=== PATIENT | female | born 1975 ===

== ENCOUNTER 2020-05-06 04:50 | Day surgery (SDC) | payer OTHER ==
[2020-05-03 09:03] VITALS: BMI 33.3
[~2020-05-06 04:50] MED LIST: FERRIC SUBSULFATE 500 ML BOTTLE TP ONE
[2020-05-06] MEDS ORDERED: MIDAZOLAM HCL 2 MG/2 ML SINGLE DOSE VIAL ONE (07:31)
[2020-05-06] MEDS ORDERED: LIDOCAINE 1%/EPI 1:100000 (50 ML MULTI DOSE VIAL) ONE (08:10)
--- NOTE | 2020-05-06 08:12 | HP ---
History & Physical Update - History History: No Change (Cervical ALEX 1-2, positive HR-HPV) - Physical Physical: No Change - Assessment Assessment: No Change - Plan Plan: No Change (Colposcopy, LEEP)
[2020-05-06] MEDS ORDERED: IODINE/POTASSIUM IODIDE 5%/10% 14 ML BOTTLE NR ONE (08:37)
[2020-05-06] MEDS ORDERED: LIDOCAINE 1%/EPI 1:100000 (50 ML MULTI DOSE VIAL) NR ONE (08:38)
[2020-05-06] MEDS ORDERED: FERRIC SUBSULFATE 500 ML BOTTLE TP ONE (08:55)
--- NOTE | 2020-05-06 09:09 | OP ---
Operative Note - Note: Operative Date: 05/06/20 Pre-Operative Diagnosis: HGSIL of cervix, positive hr-HPV Operation: Colposcopy, LEEP Findings: No masses or sign of dysplasia. Post-Operative Diagnosis: Same as Pre-op Surgeon: Sharif Banegas Anesthesiologist/SIXTH GRADE TEACHER: Tino Tan Anesthesia: General Specimens Removed: LEEP (multiple fragments), ECC Estimated Blood Loss (mls): 3 Blood Volume Replaced (mls): 0 Fluid Volume Replaced (mls): 500 Operative Report Dictated: Yes
[2020-05-06] MEDS ORDERED: PROPOFOL 20 ML ONE ×2 (09:21)
[2020-05-06] MEDS ORDERED: ONDANSETRON 4 MG/2 ML VIAL IVPUSH PRN (09:36)
[2020-05-06] MEDS ORDERED: KETOROLAC TROMETHAMINE 30 MG/1 ML VIAL IVPUSH ONE (09:37)
[2020-05-06] MEDS ORDERED: KETOROLAC TROMETHAMINE 30 MG/1 ML VIAL ONE (09:51)
--- NOTE | 2020-05-06 10:12 | OP ---
DATE OF OPERATION: 05/06/2020 PREOPERATIVE DIAGNOSIS: High grade squamous intraepithelial lesion (HGSIL) of cervix, cervical intraepithelial neoplasia 2, positive high risk human papilloma virus. POSTOPERATIVE DIAGNOSIS: High grade squamous intraepithelial lesion (HGSIL) of cervix, cervical intraepithelial neoplasia 2, positive high risk human papilloma virus. PROCEDURE: Colposcopy, loop electrosurgical excision procedure (LEEP), endocervical curettage. SURGEON: Sharif Banegas MD ANESTHESIOLOGIST: Reagan Tan MD ANESTHESIA: General. COMPLICATIONS: None. ESTIMATED BLOOD LOSS: 3 mL IV FLUIDS: 500 mL PATHOLOGY: LEEP (multiple fragments) and endocervical curettage. FINDINGS: Colposcopy was performed utilizing acetic acid and Lugol's solutions. No signs of cervical dysplasia or masses were noted. LEEP procedure was done without complications. Good hemostasis at the end of the procedure. PROCEDURE DESCRIPTION: The patient was met preoperatively. Risks, benefits and alternatives of surgery were reviewed in details, the consent form discussed and signed. The patient verbalized her understanding and requested to proceed with the surgery. The patient was brought to the OR with the IV running. She was placed on the surgical table in the supine position. The general anesthesia was achieved without difficulty. She was then placed in a dorsal lithotomy position using adjustable Fausto stirrups. The patient was prepped and draped in the usual sterile fashion. Lidocaine with epinephrine was injected circumferentially inside the cervix. The colposcopy was performed. Lugol's solution was also used along with the acetic acid with the findings as described above. Once the colposcopy was completed, a LEEP procedure was done using a 2-cm loop which was the largest available for this procedure. However, multiple fragments had to be taken due to the patient's large cervical size. Once this was completed, endocervical curettage was also done. A ball cautery was used to cauterize the base of the LEEP and good hemostasis was noted. Monsel's solution was also used to maintain good hemostasis of the LEEP wound. The wound was monitored for a short while and excellent hemostasis was confirmed. After that, the patient was returned to supine position and transferred to recovery room awake and in stable condition. Nacho REYES/[id number]
[2020-05-06 11:20] VITALS: TEMP 96.8
[2020-05-06 12:31] VITALS: BP 111/75; PULSE 60
--- NOTE | 2020-05-09 11:36 | PATH ---
Surgical Pathology Report Patient Name: MARCY WEATHERS [facility]. Rec. #: [id number] /Age/Gender: 1975 (Age: 44) / F Account: [id number] Location: [facility] SUR[facility] Taken: 05/06/2020 Received: 05/06/2020 Reported: 05/09/2020 Physicians: Sharif Banegas M.D. Specimen(s) Received A: CERVIX, LEEP CONE B: ENDOCERVICAL CURETTINGS Clinical History Moderate cervical dysplasia/cervical high risk HPV ALEX 1-2 on colpo biopsy +HR-HPV Final Diagnosis A. CERVIX, LEEP CONE BIOPSY: ALEX 1 WITH GLANDULAR INVOLVEMENT AND FOCAL ALEX 2 (CERVICAL INTRAEPITHELIAL NEOPLASIA, GRADE 2). CIN1 PRESENT AT CAUTERIZED MARGIN AND IN DETACHED SQUAMOUS EPITHELIUM. MARGINS ARE NEGATIVE FOR ALEX 2. ACUTE AND CHRONIC CERVICITIS PRESENT. Comment: Immunohistochemical stains (block A1) show patch staining for p16 (negative). However in view of focal dysplasia shows increased mitoses and Ki-67 expression in the upper two third of the lesion, the findings are best classified as focal ALEX 2. Immunohistochemistry stains p16 and Ki-67 performed at [place], [place] ([id number]) interpreted at [facility]. Positive and negative controls (internal if applicable) show appropriate results. B. ENDOCERVICAL CURETTINGS: FRAGMENTS OF ENDOCERVICAL TISSUE WITH NO SIGNIFICANT PATHOLOGIC CHANGE. NEGATIVE FOR DYSPLASIA. Electronically Signed Bennett Boland M.D. Gross Description A. Received in formalin labeled "cervix, LEEP cone biopsy," are 7 pink oates, irregular, unoriented portions of tissue, consistent with portions of a cervix. The specimens range from 1.2 x 0.7 x 0.1 cm to 2.3 x 0.8 x 0.3 cm. The specimens are inked blue, serially sectioned and entirely submitted in 5 cassettes. B. Received in formalin labeled "endocervical curettings," is a 0.9 x 0.8 x 0.2 cm aggregate of blood-tinged mucus, possibly containing soft tissue fragments. The formalin is filtered and the specimen is entirely submitted in one cassette. DL/05/06/2020 saudi/05/06/2020
== END 2020-05-06 12:38 | disposition home or self-care (01) ==
LOC: JASU-SURG 04:50
PROVIDERS: ATTEND Obstetrics & Gynecology
PROC: 0UBC7ZX Excision of Cervix, Via Natural or Artificial Opening, Diagnostic (ICD-10-PCS; principal; 2020-05-06 08:00)
DX: N87.1 Moderate cervical dysplasia (principal); R87.820 Cervical low risk human papillomavirus (HPV) DNA test positive
CPT/HCPCS: 84703; 88305-TC; 88307-TC; 94760